=== PATIENT | male | born 1945 | race Caucasian/White ===

== ENCOUNTER → 2017-06-04 | Outpatient (CLI) | payer MEDICARE ==
[~2017-06-04] MED LIST: AMLO-1 PO; ATEN-65 PO; ATEN100T93 PO; DAB150 PO; HYDR-2966 PO; HYDR12.558 PO; LISI-357 PO; LISI-374 PO; PNEU0.5D3 IM; PRO150 PO; ROS10 FT; ROS10 PO; ROSU10TA PO; [UNRECOGNIZED DRUG - OTHER] PO
== END ==
LOC: LAB 07:45
PROVIDERS: ATTEND Urology
DX: Z12.5 Encounter for screening for malignant neoplasm of prostate (principal)
CPT/HCPCS: 36415; G0103; 84153

== ENCOUNTER 2017-06-23 12:04 | Emergency (ER) | payer MEDICARE ==
[2017-06-23] MEDS ORDERED: DILTIAZEM 5 MG/ML 5ML IVPUSH IVP ONE (12:25)
[2017-06-23] MEDS ORDERED: ASPIRIN 81 MG CHEW PO ONE (12:25)
--- NOTE | 2017-06-23 12:34 | ER Report ---
History and Physical Time Seen By MD: 12:10 Hx. of Stated Complaint: PT REPORTS CHEST PAIN EPIGASTRIC THROUGHTOUT THE NIGHT AND TROUBLE CATCHING BREATH ACCORDING TO FRIEND, PT STATES HE FEELS ALRIGHT AND HAS NO SYMPTOMS HPI/ROS CHIEF COMPLAINT: Chest pain HISTORY OF PRESENT ILLNESS: Patient is a 71-year-old male coming by his , who presents the ED with complaint of chest pain that started 9 1/2 hours ago and lasted intermittently for 6 hours. He states that it woke him up in overnight. He denies any radiation of the pain into his jaw or arms. He states that he has been having cough and congestion for the past week. He denies any fever but has felt warm intermittently. He states that he was not having any shortness of breath. He denies any nausea or vomiting. He states that he has no history of [place] or CHF in the past. He does have a history of atrial fibrillation. He has never been on any blood thinners for this. He states that he only had a single episode of each or fibrillation lasted for days and to his knowledge has not been in this rhythm since. He states that he was taking atenolol for some rate control until 2 months ago because his heart rate was in the 40s. He currently is pain-free. REVIEW OF SYSTEMS: Constitutional: No fever, no chills. Eyes: No discharge. ENT: No sore throat. Cardiovascular: See history of present illness. No palpitations. Respiratory: See history of present illness. Gastrointestinal: No abdominal pain, no vomiting. Genitourinary: No hematuria. Musculoskeletal: No back pain. Skin: No rashes. Neurological: No headache. Allergies: Coded Allergies: atorvastatin (Verified Allergy, Unknown, 02/04/17) Home Meds Active Scripts Rivaroxaban 20 Mg (XARELTO 20 MG) 20 Mg Tablet, 20 MG PO QDAY, #30 TAB Prov:SRINIVASA BLAKE PA-C 06/23/17 Rosuvastatin Calcium (CRESTOR) 10 Mg Tab, 0.5 TAB PO 3XW, #1 TAB Prov:FELISA BLAKE MD 02/08/17 Reported Medications Amlodipine Besylate (Amlodipine Besylate) 5 Mg Tablet, 1 TAB PO QDAY 08/24/12 Lisinopril (Lisinopril) 40 Mg Tablet, 1 TAB PO QDAY 08/24/12 Reviewed Nurses Notes: Yes Old Medical Records Reviewed: Yes Hx Smoking: Yes Smoking Status: Former Smoker Hx Substance Use Disorder: No Hx Alcohol Use: Yes Constitutional Vital Sign - Last 24 Hours 06/23/17 06/23/17 06/23/17 06/23/17 12:04 12:10 12:10 12:19 Temp 98.5 Pulse ??? 100 ??? Resp 18 14 B/P (MAP) 146/118 146/118 (127) Pulse Ox 95 94 O2 Delivery Room Air 06/23/17 06/23/17 06/23/17 06/23/17 12:30 12:34 12:37 12:40 Pulse 86 Resp 21 B/P (MAP) 125/83 (97) 98/65 (76) 112/77 (89) Pulse Ox 95 06/23/17 06/23/17 06/23/17 06/23/17 12:49 12:50 13:00 13:04 Pulse 58 62 Resp 10 17 B/P (MAP) 115/79 (91) 113/71 (85) Pulse Ox 93 95 06/23/17 06/23/17 06/23/17 06/23/17 13:10 13:20 13:30 13:40 Pulse 62 Resp 17 B/P (MAP) 114/83 (93) 114/77 (89) 112/77 (89) 118/76 (90) Pulse Ox 95 06/23/17 06/23/17 06/23/17 06/23/17 13:45 13:50 14:00 14:10 Pulse 66 62 Resp 18 26 B/P (MAP) 95/88 (90) 117/91 (100) 121/96 (104) Pulse Ox 94 95 06/23/17 06/23/17 06/23/17 06/23/17 14:15 14:20 14:25 14:30 Pulse 63 67 Resp 16 B/P (MAP) 115/88 (97) 113/90 (98) Pulse Ox 94 06/23/17 06/23/17 06/23/17 06/23/17 14:40 14:50 14:55 15:00 Pulse 63 71 Resp 16 21 B/P (MAP) 121/81 (94) 128/99 (109) 128/93 (105) Pulse Ox 94 92 3/06/23/17 06/23/17 06/23/17 15:10 15:20 15:25 15:30 Pulse 71 71 Resp 13 17 B/P (MAP) 128/93 (105) 134/78 (96) 134/106 (115) Pulse Ox 96 95 06/23/17 06/23/17 06/23/17 06/23/17 15:40 15:50 15:55 16:00 Pulse 71 77 Resp 15 14 B/P (MAP) 126/89 (101) 136/102 (113) 133/83 (100) Pulse Ox 94 94 Physical Exam General Appearance: The patient is alert, has no immediate need for airway protection and no signs of toxicity. Patient appears to be in no acute distress. Eyes: Pupils equal and round no pallor or injection. ENT, Mouth: Mucous membranes are moist. Respiratory: There are no retractions, lungs are clear to auscultation. Cardiovascular: Irregularly irregular and slightly tachycardic.. Gastrointestinal: Abdomen is soft and non tender, no masses, bowel sounds normal. Neurological: Cranial nerves II through XII intact. Skin: Warm and dry, no rashes. Musculoskeletal: Neck is supple non tender. Extremities are nontender, nonswollen and have full range of motion. DIFFERENTIAL DIAGNOSIS: After history and physical exam differential diagnosis was considered for chest pain including but not limited to myocardial ischemia, pericarditis pulmonary embolus, chest wall pain, pleural inflammation and pulmonary infectious causes. Medical Decision Making Data Points Result Diagram: 06/23/17 1222 06/23/17 1222 Laboratory Hematology Test 06/23/17 12:22 06/23/17 15:16 Red Blood Count 5.10 M/uL (4.00-5.60) Mean Corpuscular Volume 96.7 fL (80.0-96.0) Mean Corpuscular Hemoglobin 34.1 pg (26.0-33.0) Mean Corpuscular Hemoglobin Concent 35.3 g/dL (32.0-36.0) Red Cell Distribution Width 12.8 % (11.5-14.5) Mean Platelet Volume 8.4 fL (7.2-11.1) Neutrophils (%) (Auto) 76.4 % (39.4-72.5) Lymphocytes (%) (Auto) 10.1 % (17.6-49.6) Monocytes (%) (Auto) 10.9 % (4.1-12.4) Eosinophils (%) (Auto) 0.9 % (0.4-6.7) Basophils (%) (Auto) 1.7 % (0.3-1.4) Nucleated RBC Relative Count (auto) 0.0 /100WBC Neutrophils # (Auto) 8.4 K/uL (2.0-7.4) Lymphocytes # (Auto) 1.1 K/uL (1.3-3.6) Monocytes # (Auto) 1.2 K/uL (0.3-1.0) Eosinophils # (Auto) 0.1 K/uL (0.0-0.5) Basophils # (Auto) 0.2 K/uL (0.0-0.1) Nucleated RBC Absolute Count (auto) 0.00 K/uL Peripheral Blood Smear Yes Y/N Prothrombin Time 13.0 seconds (12.0-14.4) Prothromb Time International Ratio 0.98 Activated Partial Thromboplast Time 28 seconds (23-35) D-Dimer Quantitative (PE/DVT) 0.42 ug/ml (0-0.50) Sodium Level 138 mmol/L (137-145) Potassium Level 4.7 mmol/L (3.5-5.0) Chloride Level 101 mmol/L (98-107) Carbon Dioxide Level 26 mmol/L (22-30) Blood Urea Nitrogen 16 mg/dl (9-21) Creatinine 0.90 mg/dl (0.66-1.25) Glomerular Filtration Rate Calc > 60.0 Random Glucose 116 mg/dl (75-110) Calcium Level 9.5 mg/dl (8.4-10.2) Total Bilirubin 0.9 mg/dl (0.2-1.3) Aspartate Amino Transf (AST/SGOT) 30 U/L (0-35) Alanine Aminotransferase (ALT/SGPT) 48 U/L (0-56) Alkaline Phosphatase 91 U/L (0-126) B-Type Natriuretic Peptide 356 pg/ml (0-100) Total Protein 8.1 gm/dl (6.3-8.2) Albumin 4.4 g/dl (3.5-5.0) Troponin I < 0.012 ng/ml Chemistry Test 06/23/17 12:22 06/23/17 15:16 White Blood Count 11.0 k/uL (4.5-11.0) Red Blood Count 5.10 M/uL (4.00-5.60) Hemoglobin 17.4 g/dL (14.0-18.0) Hematocrit 49.4 % (42.0-52.0) Mean Corpuscular Volume 96.7 fL (80.0-96.0) Mean Corpuscular Hemoglobin 34.1 pg (26.0-33.0) Mean Corpuscular Hemoglobin Concent 35.3 g/dL (32.0-36.0) Red Cell Distribution Width 12.8 % (11.5-14.5) Platelet Count 175 K/uL (150-450) Mean Platelet Volume 8.4 fL (7.2-11.1) Neutrophils (%) (Auto) 76.4 % (39.4-72.5) Lymphocytes (%) (Auto) 10.1 % (17.6-49.6) Monocytes (%) (Auto) 10.9 % (4.1-12.4) Eosinophils (%) (Auto) 0.9 % (0.4-6.7) Basophils (%) (Auto) 1.7 % (0.3-1.4) Nucleated RBC Relative Count (auto) 0.0 /100WBC Neutrophils # (Auto) 8.4 K/uL (2.0-7.4) Lymphocytes # (Auto) 1.1 K/uL (1.3-3.6) Monocytes # (Auto) 1.2 K/uL (0.3-1.0) Eosinophils # (Auto) 0.1 K/uL (0.0-0.5) Basophils # (Auto) 0.2 K/uL (0.0-0.1) Nucleated RBC Absolute Count (auto) 0.00 K/uL Peripheral Blood Smear Yes Y/N Prothrombin Time 13.0 seconds (12.0-14.4) Prothromb Time International Ratio 0.98 Activated Partial Thromboplast Time 28 seconds (23-35) D-Dimer Quantitative (PE/DVT) 0.42 ug/ml (0-0.50) Glomerular Filtration Rate Calc > 60.0 Calcium Level 9.5 mg/dl (8.4-10.2) Total Bilirubin 0.9 mg/dl (0.2-1.3) Aspartate Amino Transf (AST/SGOT) 30 U/L (0-35) Alanine Aminotransferase (ALT/SGPT) 48 U/L (0-56) Alkaline Phosphatase 91 U/L (0-126) B-Type Natriuretic Peptide 356 pg/ml (0-100) Total Protein 8.1 gm/dl (6.3-8.2) Albumin 4.4 g/dl (3.5-5.0) Troponin I < 0.012 ng/ml Coagulation Test 06/23/17 12:22 Prothrombin Time 13.0 seconds Prothromb Time International Ratio 0.98 Activated Partial Thromboplast Time 28 seconds D-Dimer Quantitative (PE/DVT) 0.42 ug/ml EKG/Imaging EKG Interpretation 12 lead EK:09 Rhythm: Atrial fibrillation, rate ranging from 90s to 115. ST segments: No acute ST changes identified. 12 lead EK:47 Rhythm: Atrial fibrillation, rate 60s ST segments: No acute see changes identified. Low voltage noted in V5 and V6. 12 lead EK:29 Rhythm: Atrial fibrillation, rate [address] segments: No acute ST changes identified. Monitor Interpretation: Atrial Fibrillation Imaging CXR: IMPRESSION: Clear lungs. Report Dictated By: Guillermo Sorto at 06/23/2017 12:57 PM Report E-Signed By: Guillermo Sorto at 06/23/2017 12:58 PM ED Course/Re-evaluation ED Course Will obtain chest x-ray, EKG, labs. 06/23/2017 12:52:40 pm - initial EKG reveals atrial fibrillation with some borderline RVR. Patient was given 50 mg IV to eyes and and heart rate decreased into the 60s but continued in atrial fibrillation. 06/23/2017 1:24:42 pm - discussed all labs, imaging, EKGs with patient. He continues be in atrial fibrillation but rate is now under good control. He continues to be pain-free. He is feeling well. Will check a serial troponin at the three-hour karley. 06/23/2017 4:00:05 pm - discussed normal troponin and EKG continues to have atrial fibrillation. CHADS2-VASC: 2. Will start patient on Xarelto to given his risk factors. Patient has no history of bleeding and has been on Pradaxa in the past. Follow-up with his primary care provider in the next 2 days. He may need to be on rate control therapy in the future but currently his rate is well- controlled. Decision to Disposition Date: Jun 23, 2017 Decision to Disposition Time: 15:59 Depart Departure Latest Vital Signs Vital Signs Date Time Temp Pulse Resp B/P (MAP) Pulse Ox O2 Delivery O2 Flow Rate FiO2 06/23/17 16:00 133/83 (100) 06/23/17 15:55 77 14 94 06/23/17 12:10 98.5 Room Air Impression: Primary Impression: Atrial fibrillation Condition: Improved Disposition: HOME OR SELF-CARE Referrals: FELISA BLAKE MD (PCP) New Scripts Rivaroxaban 20 Mg (XARELTO 20 MG) 20 Mg Tablet 20 MG PO QDAY, #30 TAB Prov: SRINIVASA BLAKE PA-C 06/23/17 Patient Instructions: A-fib (Atrial Fibrillation) (ED) Additional Instructions: Stay well-hydrated. Follow-up with primary care provider in 1-2 days. If having any worsening or concerning symptoms may return to the emergency department. Problem Qualifiers Primary Impression: Atrial fibrillation Atrial fibrillation type: unspecified Qualified Codes: I48.91 - Unspecified atrial fibrillation SRINIVASA BLAKE PA-C Jun 23, 2017 12:34
[2017-06-23 12:40] LABS: PLATELET COUNT, AUTOMATED 175 K/uL (150-450)
[2017-06-23 12:46] LABS: INR 0.98
--- NOTE | 2017-06-23 13:01 | RADIOLOGY IMAGING REPORT ---
FACILITY: [facility] PATIENT NAME: Pierce Rg : 1945 MR: [id number] V: [id number] EXAM DATE: ORDERING PHYSICIAN: SRINIVASA BLAKE TECHNOLOGIST: Location: [facility] - [place] Patient: Pierce Rg : 1945 Visit/Account:[id number] Date of Sevice: 06/23/2017 CHEST SINGLE AP Indication: Chest Pain Comparison: None. Findings: Lungs: Clear. Mediastinum/pulmonary vasculature: Heart size and pulmonary vasculature are normal. Bones/soft tissues: Normal. IMPRESSION: Clear lungs. Report Dictated By: Guillermo Sorto at 06/23/2017 12:57 PM Report E-Signed By: Guillermo Sorto at 06/23/2017 12:58 PM WSN:[id number]
[2017-06-23 16:00] VITALS: BP 133/83
[2017-06-23] MEDS ORDERED: RIVAROXABAN 10 MG TAB PO ONE (16:00)
[2017-06-23] MEDS ORDERED: RIVA20TA PO (16:00)
--- NOTE | 2017-06-23 16:33 | EKG ---
FAC[place] [facility] [place]IENT NAME: JUAN CORDON : [id number] MR: [id number] V: [id number] EXAM DATE: ORDERING PHYSICIAN: SRINIVASA BLAKE TECHNOLOGIST: MARIA G Sen Reason : CHEST PAIN Blood Pressure : / mmHG Vent. 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 rate has increased BY 39 BPM Questionable change in initial forces of Lateral leads Confirmed by YANE RAYMOND ([id number]) on 06/24/2017 6:34:29 AM Referred By: ROD Confirmed By:YANE RAYMOND
--- NOTE | 2017-06-23 16:33 | EKG ---
FACILITY: [facility] PATIENT NAME: JUAN CORDON : [id number] MR: [id number] V: [id number] EXAM DATE: ORDERING PHYSICIAN: SRINIVASA BLAKE TECHNOLOGIST: MARIA G Sen Reason : REPEAT Blood Pressure : / mmHG Vent. 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 rate has decreased BY 37 BPM Criteria for Anterolateral infarct are no longer present Confirmed by YANE RAYMOND ([id number]) on 06/24/2017 6:34:04 AM Referred By: AAKASH Confirmed By:YANE RAYMOND
--- NOTE | 2017-06-23 16:34 | EKG ---
FACILITY: [facility] - [place] PATIENT NAME: JUAN CORDON : [id number] MR: [id number] V: [id number] EXAM DATE: ORDERING PHYSICIAN: SRINIVASA BLAKE TECHNOLOGIST: MARIA G Sen Reason : REPEAT Blood Pressure : / mmHG Vent. 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
[2017-06-25] MEDS ORDERED: AMLO-99 PO (10:08)
[2017-06-25] MEDS ORDERED: AMLO-96 PO (10:26)
== END 2017-06-23 16:00 | disposition home or self-care (01) ==
LOC: ER 12:16
DX: I48.91 Unspecified atrial fibrillation (principal)
CPT/HCPCS: 71045; 83880; 84484; 85025; 85379; 85610; 85730; 93005; 96374; 99284; A9270; J3490; 82040; 82247; 82310; 82374; 82435; 82565; 82947; 84075; 84132; 84155; 84295; 84450; 84460; 84520

== ENCOUNTER → 2017-06-25 | Outpatient (CLI) | payer MEDICARE ==
[~2017-06-25] MED LIST changes: +AMLO-96 PO; +AMLO-99 PO; +RIVA20TA PO
--- NOTE | 2017-06-25 10:31 | EKG ---
FACILITY: [facility] PATIENT NAME: JUAN CORDON : [id number] MR: [id number] V: [id number] EXAM DATE: ORDERING PHYSICIAN: FELISA BLAKE TECHNOLOGIST: MERRICK RÍOS Test Reason : AFIB Blood Pressure : / mmHG Vent. 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
== END ==
LOC: RESP 10:24
PROVIDERS: ATTEND Family Medicine
DX: I48.91 Unspecified atrial fibrillation (principal); R94.31 Abnormal electrocardiogram [ECG] [EKG]

== ENCOUNTER → 2018-04-16 | Outpatient (CLI) | payer MEDICARE ==
[~2018-04-16] MED LIST changes: +AMLO-111 PO; +AMLO-113 PO; -AMLO-96 PO; -AMLO-99 PO; +APIX5TAB PO; +PRAV20TA66 PO
[2018-04-16 09:10] LABS: PLATELET COUNT, AUTOMATED 161 K/uL (150-450)
[2018-04-16 09:50] LABS: LDL CHOLESTEROL 101 mg/dl
== END ==
LOC: LAB 08:56
PROVIDERS: ATTEND Family Medicine
DX: I48.91 Unspecified atrial fibrillation (principal); E78.5 Hyperlipidemia, unspecified; R73.01 Impaired fasting glucose; I10 Essential (primary) hypertension
CPT/HCPCS: 36415; 82040; 82247; 82310; 82374; 82435; 82465; 82565; 82947; 83036; 83718; 84075; 84132; 84155; 84295; 84450; 84460; 84478; 84520; 85025

== ENCOUNTER → 2018-08-28 | Outpatient (CLI) | payer MEDICARE ==
[~2018-08-28] MED LIST changes: +ALLO100T70 PO; -AMLO-111 PO; -AMLO-113 PO; +AMLO-125 PO; +AMLO-127 PO; +PRED20TA6 PO; -ROS10 FT; -ROS10 PO; +ROSU10TA FT
== END ==
LOC: LAB 09:15
PROVIDERS: ATTEND Family Medicine
DX: M10.9 Gout, unspecified (principal)
CPT/HCPCS: 36415; 82040; 82247; 82310; 82374; 82435; 82565; 82947; 84075; 84132; 84155; 84295; 84450; 84460; 84520; 84550